=== PATIENT | female | born 1960 | race Caucasian/White ===

== ENCOUNTER 2023-11-27 10:17 | Inpatient (IN) | payer OTHER ==
[~2023-11-27] VITALS: Ht 162.6 cm; Wt 54.4 kg
[2023-11-27 10:18] VITALS: BP_SYST 130; PULSE 71; RESP 18; TEMP 98.5; O2SAT 98
[2023-11-27] MEDS ORDERED: iohexoL 350 mgI/mL, 100 ML INFUS..BTL IV ONE (10:30)
[2023-11-27 11:02] LABS: BASOPHILS % (AUTO) 0.6 % (0.0-2.0); EOSINOPHILS % (AUTO) 0.6 % (0.0-4.0); HEMATOCRIT 42.2 % (36-48); HEMOGLOBIN 14.8 g/dL (12.0-16.0); LYMPHOCYTES # (AUTO) 1.9 K/uL (1.0-5.5); MEAN CORPUSCULAR HEMOGLOBIN 32 pg (27-31); MEAN CORPUSCULAR HGB CONC 35 % (32-36); MEAN CORPUSCULAR VOLUME 90 fL (79.0-98.0); MONOCYTES # (AUTO) 0.7 K/uL (0.0-1.0); MONOCYTES % (AUTO) 10.5 % (1.7-9.3); NEUTROPHILS # (AUTO) 3.8 K/uL (1.8-7.7); NEUTROPHILS % (AUTO) 59.3 % (40.0-70.0); PLATELET COUNT (AUTO) 203 K/uL (130-430); RED CELL DISTRIBUTION WIDTH 13.1 % (9.0-15.0); WHITE BLOOD COUNT (AUTO) 6.5 K/uL (4.8-10.8)
[2023-11-27 11:13] LABS: ANION GAP 9 (5-15); CALCIUM 8.7 mg/dL (8.4-11.0); CARBON DIOXIDE 26 mmol/L (23-29); CHLORIDE 102 mmol/L (98-107); CREATININE 1.06 mg/dL (0.55-1.30); GFR AFRICAN AMERICAN 68 mL/min (>90); GLUCOSE 88 mg/dL (74-106); POTASSIUM 3.8 mmol/L (3.5-5.1); SODIUM SERUM 137 mmol/L (136-145); UREA NITROGEN, BLOOD 18 mg/dL (8-21)
[2023-11-27 11:14] LABS: GFR NON AFRICAN-AMERICAN 56 mL/min (>90)
[2023-11-27 11:17] LABS: PROTHROMBIN TIME 10.8 SECS (9.5-12.5)
[2023-11-27 11:20] LABS: CHOLESTEROL 155 mg/dL (<200); HDL CHOLESTEROL 74 mg/dL (>55); TRIGLYCERIDES 98 mg/dL (30-150)
[2023-11-27 11:21] LABS: ACETAMINOPHEN < 1 ug/mL (1-30); ALCOHOL, BLOOD < 3 mg/dL (<10); SALICYLATE < 1 mg/dL (3-30)
[2023-11-27 11:25] LABS: HEMOGLOBIN A1C 4.82 % (<5.7)
[2023-11-27] MEDS ORDERED: ZOLP5TAB2 PO (11:35)
[2023-11-27 11:43] LABS: BILIRUBIN,URINE NEGATIVE (NEGATIVE); BLOOD, URINE NEGATIVE (NEGATIVE); CLARITY/URINE CLEAR (CLEAR); COLOR,URINE YELLOW (YELLOW); GLUCOSE,URINE NEGATIVE (NEGATIVE); KETONES,URINE NEGATIVE (NEGATIVE); LEUKOCYTE ESTERASE ,URINE NEGATIVE (NEGATIVE); NITRITE, URINE NEGATIVE (NEGATIVE); PROTEIN URINE NEGATIVE (NEGATIVE); UROBILINOGEN,URINE 0.2 (0.2-1.0)
[2023-11-27 11:57] LABS: BARBITURATE, URINE NEGATIVE (NEG <=200)
[2023-11-27 11:58] LABS: BENZODIAZEPINE, URINE NEGATIVE (NEG <=150); CANNABINOID, URINE NEGATIVE (NEG <=50); COCAINE, URINE NEGATIVE (NEG <=150); METHAMPHETAMINES SCREEN,URINE NEGATIVE (NEG <=500); OPIATE, URINE NEGATIVE (NEG <=100); PHENCYCLIDINE SCREEN,URINE NEGATIVE (NEG <=25); UR TRICYCLIC ANTIDEPRESSANTS NEGATIVE (NEG <=300); URINE AMPHETAMINE NEGATIVE (NEG <=500); URINE METHADONE NEGATIVE (NEG <=200); URINE OXYCODONE SCREEN NEGATIVE (NEG <=100)
[2023-11-27] MEDS: ASPIRIN 81 MG TAB.CHEW PO ONE (12:26)
[2023-11-27] MEDS ORDERED: ONDANSETRON HCL 4 MG/2 ML VIAL IVP PRN (14:45)
[2023-11-27] MEDS ORDERED: MAGNESIUM SULFATE 50 ML IV PRN (14:45)
[2023-11-27] MEDS ORDERED: ZOLPIDEM TARTRATE 5 MG TABLET PO PRN (14:45)
[2023-11-27] MEDS ORDERED: ACETAMINOPHEN 500 MG TABLET PO PRN ×2 (14:45→15:00)
[2023-11-27] MEDS ORDERED: POTASSIUM CHLORIDE 20 MEQ TABLET.ER PO PRN (14:45)
[2023-11-27] MEDS ORDERED: MUPIROCIN 2% TOPICAL OINTMENT 22 GM NS PRN (14:45)
[2023-11-27] MEDS ORDERED: LORazepam 2 MG/ML VIAL IVP PRN (14:45)
[2023-11-27] MEDS ORDERED: DOCUSATE SODIUM 100 MG CAPSULE PO PRN (14:45)
[2023-11-27 15:30] VITALS: BP_SYST 118; PULSE 69; RESP 18; TEMP 97.9; O2SAT 97
[2023-11-27] MEDS: NACL 0.9% 1,000 ML IV SCH (18:00)
[2023-11-27 20:00] VITALS: BP_SYST 123; PULSE 68; RESP 20; TEMP 98.6; O2SAT 96
[2023-11-28] VITALS: BP_SYST 119; PULSE 71; RESP 18; TEMP 98; O2SAT 97
[2023-11-28 05:34] LABS: BASOPHILS % (AUTO) 0.5 % (0.0-2.0); EOSINOPHILS # (AUTO) 0.1 K/uL (0.0-0.4); EOSINOPHILS % (AUTO) 1.3 % (0.0-4.0); HEMATOCRIT 42.8 % (36-48); LYMPHOCYTES # (AUTO) 2.2 K/uL (1.0-5.5); LYMPHOCYTES % (AUTO) 29.3 % (20.5-51.5); MEAN CORPUSCULAR HEMOGLOBIN 31 pg (27-31); MEAN CORPUSCULAR HGB CONC 35 % (32-36); MEAN CORPUSCULAR VOLUME 89 fL (79.0-98.0); MONOCYTES # (AUTO) 0.8 K/uL (0.0-1.0); MONOCYTES % (AUTO) 11.3 % (1.7-9.3); NEUTROPHILS # (AUTO) 4.3 K/uL (1.8-7.7); NEUTROPHILS % (AUTO) 57.6 % (40.0-70.0); PLATELET COUNT (AUTO) 203 K/uL (130-430); RED BLOOD CELL COUNT(AUTO) 4.79 MIL/uL (4.2-6.2); RED CELL DISTRIBUTION WIDTH 12.9 % (9.0-15.0); WHITE BLOOD COUNT (AUTO) 7.4 K/uL (4.8-10.8)
[2023-11-28 05:56] LABS: CALCIUM 8.7 mg/dL (8.4-11.0); CREATININE 0.94 mg/dL (0.55-1.30); POTASSIUM 3.5 mmol/L (3.5-5.1)
[2023-11-28 08:00] VITALS: BP_SYST 127; PULSE 66; RESP 20; TEMP 96.8; O2SAT 98
[2023-11-28] MEDS: ASPIRIN 81 MG TABLET(ECOTRIN) PO SCH (09:11)
[2023-11-28 11:13] LABS: CHOLESTEROL 167 mg/dL (<200); HDL CHOLESTEROL 80 mg/dL (>55); TRIGLYCERIDES 52 mg/dL (30-150)
[2023-11-28 12:00] VITALS: BP_SYST 119; PULSE 77; TEMP 97.3; O2SAT 20
[2023-11-28 15:38] VITALS: BP_SYST 126; PULSE 79; RESP 20; TEMP 98.4
== END 2023-11-28 17:35 | disposition home or self-care (01) | DRG 74 ==
LOC: SED 10:17 → STU 12:01
PROVIDERS: ADMIT General Practice; ATTEND General Practice
DX: G90.9 Disorder of the autonomic nervous system, unspecified (principal); G45.9 Transient cerebral ischemic attack, unspecified; G47.00 Insomnia, unspecified; Z79.899 Other long term (current) drug therapy
CPT/HCPCS: 36415; 70450; 70496; 70498; 71045; 80048; 80061; 80307; 81001; 81003; 83037; 83735; 84443; 84484; 85025; 85610; 85730; 86886; 86900; 86901; 93005; 97112-GP; 97116-GP; 97530-GP; 99291; G0378; G0480; G0481; G0482; Q9967